=== PATIENT | male | born 1945 | race Caucasian/White ===

== ENCOUNTER → 2018-03-04 | Outpatient (CLI) | payer BC ==
[~2018-03-04] MED LIST: AMLO10TA4 PO; ASPI81TA28 PO; BISA-16 PO; CARV25TA2 PO; GABA-1218 PO; HYDR25TA4 PO; MULT-506 PO; OXYC7.5T78 PO; POLY1POW80 PO; SILD100T PO; SIMV10TA2 PO; SPIR50TA2 PO
--- NOTE | 2018-03-04 18:23 | DIAGNOSTIC IMAGING REPORT ---
LUMBAR SPINE W/O CONTRAST CLINICAL HISTORY: 72 years-old Male with STENOSIS. Chronic low back pain with radiation into the right lower extremity. COMPARISON: Lumbar spine MRI 11/24/2013 TECHNIQUE: Multiplanar, multi sequence MRI of the lumbar spine was performed without intravenous contrast. 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 Large T2 hyperintense lesion of the superior pole right kidney, 5.6 cm suggests renal cyst. Indeterminate 2.6 cm lesion of the interpolar right kidney appears to demonstrate heterogeneous signal. No aortic aneurysm or pathologic adenopathy identified. Levoscoliosis of the lumbar spine. No acute fracture, subluxation or focal bone marrow edema. 6 mm perineural root sleeve cyst on the right at L1-L2. Conus medullaris terminates at the L1 level. There is an 8 mm area of linear increased T2 signal involving the distal thoracic spinal cord at the level of T12 with a punctate focus seen at the inferior endplate T11 nicely seen on image 9 series 5. In retrospect, these findings appear unchanged from comparison. Cauda equina appear unremarkable. T12-L1: Moderate intervertebral disc space narrowing with posterior spondylitic spurring and circumferential annular disc bulge with moderate facet arthrosis causing mild central canal narrowing without significant foraminal stenosis. No significant change from comparison. L1-L2: Moderate intervertebral disc space narrowing with endplate spurring and moderate circumferential annular disc bulge and annular fissure. Additionally, there is a central disc extrusion which extends inferiorly 7 mm. Moderate facet arthrosis also noted. These findings cause moderate central canal, moderate left lateral recess narrowing without foraminal stenosis. Findings progressively worsened. L2-L3: Mild intervertebral disc space narrowing with endplate spurring, circumferential annular disc bulge with moderate facet arthrosis and ligamentum flavum thickening. These findings narrow the central canal to 6 mm in AP dimension resulting in moderate to severe central canal and moderate left foraminal narrowing. No significant right foraminal stenosis. These findings have also worsened from comparison. L3-L4: Mild intervertebral disc space narrowing with spondylitic spurring and circumferential annular disc bulge favoring the left lateral recess and left foramen. Moderate facet arthrosis with ligamentum flavum thickening. These findings cause mild to moderate central canal and mild bilateral foraminal narrowing. Mild to moderate left lateral recess stenosis. Slight progression from comparison. L4-L5: Moderate intervertebral disc space narrowing with spondylitic spurring and small posterior disc bulge which flattens the ventral thecal sac. At least moderate facet arthrosis with ligamentum flavum thickening. No significant central canal narrowing. There is moderate to severe right and mild left foraminal stenosis. No significant change. L5-S1: Mild intervertebral disc space narrowing with 3 mm retrolisthesis L5 on S1. Small circumferential disc bulge with mild facet arthrosis and ligamentum flavum thickening. Mild to moderate bilateral foraminal narrowing without significant central canal stenosis. Slight progression of the neuroforaminal narrowing. IMPRESSION: 1. Multilevel discogenic degenerative changes, facet arthrosis, spondylitic spurring and ligamentum flavum thickening as above results in varying degrees of central canal and foraminal narrowing. 2. At L2-L3, circumferential annular disc bulge with moderate facet arthrosis and ligamentum flavum thickening causes moderate to severe central canal and moderate left foraminal narrowing. 3. At L1-L2, moderate circumferential annular disc bulge and annular fissure with a central disc extrusion and moderate facet arthrosis causes moderate central canal and moderate left lateral recess narrowing without significant foraminal stenosis. 4. Lumbar levoscoliosis. 5. 8 mm linear T2 hyperintense focus of the distal thoracic spinal cord at the level of T12 suggests a small syrinx. The above report was generated using voice recognition software. It may contain grammatical, syntax or spelling errors. Electronically signed by: Lewis Aguiar M.D. 03/04/2018 6:22 PM Dictated Date/Time: 03/04/2018 2:52 PM
== END | disposition home or self-care (01) ==
LOC: C.MRIBC 13:57
PROVIDERS: ATTEND Orthopaedic Surgery Orthopaedic Surgery of the Spine
DX: M48.061 Spinal stenosis, lumbar region without neurogenic claudication (principal); M51.26 Other intervertebral disc displacement, lumbar region